=== PATIENT | female | born 1945 | race Caucasian/White ===

== ENCOUNTER → 2016-11-14 | Outpatient (CLI) | payer MEDICARE, BC ==
[~2016-11-14] MED LIST: ACTOS 15MG TAB15 MG PO; ALPRAZOLAM; ASPIR-LOW81 MG PO; ATENOLOL; CELEXA
== END ==
LOC: BHSO 13:56
DX: F41.1 Generalized anxiety disorder (principal)

== ENCOUNTER → 2017-01-15 | Outpatient (CLI) | payer MEDICARE, BC | LOC: BHSO 14:21 | DX: F33.1 Major depressive disorder, recurrent, moderate (principal) ==

== ENCOUNTER → 2017-05-21 | Outpatient (CLI) | payer MEDICARE, BC | LOC: BHSO 13:17 | DX: F33.1 Major depressive disorder, recurrent, moderate (principal) ==

== ENCOUNTER → 2017-11-13 | Outpatient (CLI) | payer MEDICARE, BC | LOC: BHSO 04-18 10:09 | DX: F33.42 Major depressive disorder, recurrent, in full remission (principal) | CPT/HCPCS: G0463 ==

== ENCOUNTER 2019-03-06 10:25 | Day surgery (SDC) | payer MEDICARE, BC ==
[~2019-03-06] VITALS: Ht 165.1 cm; Wt 70.8 kg
[~2019-03-06 10:25] MED LIST changes: -ASPIR-LOW81 MG PO; +ASPIRIN E.C. 8181 MG PO; -ATENOLOL; +TENORMIN 2525 MG/TAB PO
[2019-03-06 11:11] VITALS: BP 115/59; PULSE 65; TEMP 97.5
[2019-03-06] MEDS ORDERED: LIPITOR20 MG PO (11:21)
[2019-03-06] MEDS ORDERED: ZOLOFT 100MG100 MG PO (11:22)
[2019-03-06] MEDS ORDERED: DESYREL DIVIDO150 M1 PO (11:22)
[2019-03-06] MEDS ORDERED: TAMOXIFEN CITRA20 MG PO (11:23)
[2019-03-06] MEDS ORDERED: PRINZIDE 12.5 M1 TAB PO (11:23)
[2019-03-06] MEDS ORDERED: OMEGA-3 1000 MG1 CAP PO (11:25)
[2019-03-06] MEDS ORDERED: MACRODANTIN50 MG/CA1 PO (11:25)
[2019-03-06 14:17] VITALS: BP 139/53; PULSE 58; TEMP 97.2
[2019-03-06 14:32] VITALS: BP 148/58; PULSE 52
[2019-03-06 14:47] VITALS: BP 137/54; PULSE 60
== END 2019-03-06 15:30 | disposition home or self-care (01) ==
LOC: SDCO 10:25
DX: T85.192A Other mechanical complication of implanted electronic neurostimulator of spinal cord electrode (lead), initial encounter (principal); N39.41 Urge incontinence; R33.9 Retention of urine, unspecified; Z85.3 Personal history of malignant neoplasm of breast; E11.9 Type 2 diabetes mellitus without complications; I10 Essential (primary) hypertension; E78.5 Hyperlipidemia, unspecified; I34.1 Nonrheumatic mitral (valve) prolapse; G47.33 Obstructive sleep apnea (adult) (pediatric); Z90.710 Acquired absence of both cervix and uterus; Z79.82 Long term (current) use of aspirin; Z83.3 Family history of diabetes mellitus; Z82.49 Family history of ischemic heart disease and other diseases of the circulatory system; Z82.3 Family history of stroke
CPT/HCPCS: C1767; J0690; J2250; J2405; J2704; J7120